=== PATIENT | male | born 1995 | race African-American/Black ===

== ENCOUNTER 2018-10-14 15:00 | Emergency (ER) | payer BC, OTHER ==
[2018-10-14 16:25] LABS: #Eosinphils 0.1 thou/uL (0.0-0.7); #Neutrophils 7.3 thou/uL (1.40-6.50); %Basophils 0.3 % (0.0-1.0); %Eosinophils 1.1 % (0.0-10.0); %Lymphocytes 18.8 % (21.0-51.0); %Monocytes 9.2 % (0.0-10.0); %Neutrophils 70.7 % (42.0-75.0); Hemoglobin 14.9 g/dL (14.0-18.0); Mean Corpuscular HGB CONC 34.3 g/dL (32.0-36.0); Mean Corpuscular Hemoglobin 31.1 pg (27.0-31.0); Mean Corpuscular Volume 90.8 fL (78.0-98.0); Mean Platelet Volume 7.3 fL (7.4-10.4); Platelet Count 253 thou/uL (130-400); RBC Distribution Width 11.3 % (11.5-14.5); Red Blood Cell (RBC) Count 4.78 mill/uL (4.70-6.10); White Blood Cell (WBC) Count 10.4 thou/uL (4.8-10.8)
== END 2018-10-14 16:44 | disposition home or self-care (01) ==
LOC: ERS 15:00
DX: K62.89 Other specified diseases of anus and rectum (principal); F41.9 Anxiety disorder, unspecified
CPT/HCPCS: 36415; 82274; 85025; 99283

== ENCOUNTER 2019-04-21 18:45 | Emergency (ER) | payer BC ==
--- NOTE | 2019-04-21 19:59 | RAD ---
Chest 2 views HISTORY: Cough. Fever. FINDINGS: Cardiac silhouette and pulmonary vasculature are unremarkable. Mediastinum is midline. Ther e is no confluent airspace consolidation, pneumothorax, or pleural fluid evident. IMPRESSION: Normal exam.
== END 2019-04-21 20:20 | disposition home or self-care (01) ==
LOC: ERS 18:45
DX: J06.9 Acute upper respiratory infection, unspecified (principal); L01.00 Impetigo, unspecified; F41.9 Anxiety disorder, unspecified
CPT/HCPCS: 71046; 87081; 87430; 87804

== ENCOUNTER 2019-10-29 15:21 | Emergency (ER) | payer BC, OTHER ==
[2019-10-30 12:47] LABS: SARS-CoV-2 MS2 Positive; SARS-CoV-2 N Gene Negative; SARS-CoV-2 S Gene Negative; SARS-CoV-2 orf1ab Negative
== END 2019-10-29 16:00 | disposition home or self-care (01) ==
LOC: ERS 15:21
DX: Z20.828 Contact with and (suspected) exposure to other viral communicable diseases (principal); F41.9 Anxiety disorder, unspecified
CPT/HCPCS: 87635; 99283; U0003

== ENCOUNTER 2019-11-22 22:35 | Emergency (ER) | payer BC, OTHER ==
[2019-11-24 12:30] LABS: SARS-CoV-2 MS2 Positive; SARS-CoV-2 N Gene Negative; SARS-CoV-2 S Gene Negative; SARS-CoV-2 orf1ab Negative
== END 2019-11-22 23:49 | disposition home or self-care (01) ==
LOC: ERS 22:35
DX: J02.0 Streptococcal pharyngitis (principal); Z20.828 Contact with and (suspected) exposure to other viral communicable diseases; F41.9 Anxiety disorder, unspecified
CPT/HCPCS: 87430; 87635; 99283; U0003

== ENCOUNTER 2020-03-25 11:25 | Emergency (ER) | payer BC ==
[2020-03-26 11:33] LABS: SARS-CoV-2 MS2 Positive; SARS-CoV-2 N Gene Negative; SARS-CoV-2 S Gene Negative; SARS-CoV-2 by NAA Not Detected (NotDetected); SARS-CoV-2 orf1ab Negative
== END 2020-03-25 11:33 | disposition home or self-care (01) ==
LOC: ERS 11:25
DX: J02.9 Acute pharyngitis, unspecified (principal); Z20.828 Contact with and (suspected) exposure to other viral communicable diseases
CPT/HCPCS: 87081; 87430; 87635; 99283; U0003